=== PATIENT | male | born 1950 | race Caucasian/White ===

== ENCOUNTER 2020-09-06 10:13 | Day surgery (SDC) | payer MEDICARE ==
[~2020-09-06] VITALS: Ht 188 cm; Wt 82.7 kg
[2020-09-06] MEDS ORDERED: DOBUTAMINE/D5W PMX 250 ML ONE (11:27)
[2020-09-06 12:42] VITALS: BP 142/111
[2020-09-06 12:50] LABS: BASOPHILS % (AUTO) 1 % (0-1); EOSINOPHILS % (AUTO) 2 % (1-7); LYMPHOCYTES % (AUTO) 36 % (22-44); MEAN CORPUSCULAR HEMOGLOBIN 32.7 pg (27.5-34.5); MEAN CORPUSCULAR HGB CONC 34.5 g/dL (33.2-36.2); MEAN PLATELET VOLUME 7.9 fL (7.4-10.4); MONOCYTES % (AUTO) 9 % (2-9); NEUTROPHILS % (AUTO) 52 % (42-75); PLATELET COUNT 302 x10^3/uL (130-400); RED BLOOD COUNT 4.76 x10^6/uL (4.38-5.82); RED CELL DISTRIBUTION WIDTH 13.1 % (9.4-14.8)
[2020-09-06 12:52] LABS: MD NO
[2020-09-06 12:59] LABS: ANION GAP 5 mmol/L (5-15); CALCIUM 9.1 mg/dL (8.5-10.1); CHLORIDE 109 mmol/L (98-107); CREATININE 0.85 mg/dL (0.7-1.3)
[2020-09-06] MEDS ORDERED: MIDAZOLAM 1 MG/ML, 2ML ONE (13:32)
[2020-09-06] MEDS ORDERED: FENTANYL PF 100 MCG/2ML ONE (13:32)
[2020-09-06] MEDS ORDERED: VERAPAMIL 2.5 MG/ML, 2ML ONE (13:32)
[2020-09-06] MEDS ORDERED: HEPARIN 1,000 UNITS/ML, 10ML ONE (13:32)
[2020-09-06] MEDS ORDERED: LIDOCAINE-MPF 1%, 5ML ONE (13:32)
[2020-09-06] MEDS ORDERED: SODIUM CHLORIDE 0.9% 1,000 ML IV SCH (14:30)
== END 2020-09-06 15:44 | disposition home or self-care (01) ==
LOC: CACL 10:13 → EDSTATUS 11:00 → CACL 15:44
PROVIDERS: ATTEND Internal Medicine Clinical Cardiac Electrophysiology
DX: Q23.1 Congenital insufficiency of aortic valve (principal); I25.10 Atherosclerotic heart disease of native coronary artery without angina pectoris; I10 Essential (primary) hypertension; Z79.899 Other long term (current) drug therapy; Z87.891 Personal history of nicotine dependence; Z98.890 Other specified postprocedural states; Z82.49 Family history of ischemic heart disease and other diseases of the circulatory system
CPT/HCPCS: 36415; 80048; 85025; 93017; 93321; 93350; 93458; 99156; C1769; C1894; J1250; J1644; J2250; J3010; Q9967

== ENCOUNTER 2020-10-03 11:44 | Day surgery (SDC) | payer MEDICARE ==
[~2020-10-03] VITALS: Ht 182.9 cm; Wt 82.7 kg
[2020-10-03] MEDS ORDERED: SODIUM CHLORIDE 0.9% 1,000 ML IV SCH (13:00)
[2020-10-03] MEDS ORDERED: LIDOCAINE 2%, 20ML ONE (13:13)
[2020-10-03] MEDS ORDERED: ADENOSINE 6 MG/2 ML ONE (13:13)
[2020-10-03] MEDS ORDERED: ISOPROTERENOL 0.2MG/ML, 5ML ONE (13:13)
[2020-10-03] MEDS ORDERED: MIDAZOLAM 1 MG/ML, 5ML ONE (13:13)
[2020-10-03] MEDS ORDERED: FENTANYL PF 100 MCG/2ML ONE (13:13)
[2020-10-03 13:36] VITALS: BP 135/79
[2020-10-03 13:41] LABS: BASOPHILS % (AUTO) 1 % (0-1); EOSINOPHILS % (AUTO) 1 % (1-7); LYMPHOCYTES % (AUTO) 26 % (22-44); MEAN CORPUSCULAR HEMOGLOBIN 32.8 pg (27.5-34.5); MEAN CORPUSCULAR HGB CONC 34.6 g/dL (33.2-36.2); MEAN PLATELET VOLUME 8.1 fL (7.4-10.4); MONOCYTES % (AUTO) 7 % (2-9); NEUTROPHILS % (AUTO) 66 % (42-75); PLATELET COUNT 316 x10^3/uL (130-400); RED BLOOD COUNT 4.81 x10^6/uL (4.38-5.82); RED CELL DISTRIBUTION WIDTH 13.2 % (9.4-14.8)
[2020-10-03 13:44] LABS: MD NO
[2020-10-03 13:47] LABS: ANION GAP 7 mmol/L (5-15); CALCIUM 9.2 mg/dL (8.5-10.1); CHLORIDE 107 mmol/L (98-107); INTERNATIONAL NORMALIZED RATIO 1.02 (0.93-1.1); PROTHROMBIN TIME 10.9 Seconds (9.6-11.5)
[2020-10-03] MEDS ORDERED: LIDOCAINE 1%, 20ML ONE (15:11)
== END 2020-10-03 19:41 | disposition home or self-care (01) ==
LOC: CACL 11:44 → 5SO 15:40 → CACL 19:41
PROVIDERS: ATTEND Internal Medicine Clinical Cardiac Electrophysiology
DX: R55 Syncope and collapse (principal); I47.2 Ventricular tachycardia; Q23.1 Congenital insufficiency of aortic valve; I25.10 Atherosclerotic heart disease of native coronary artery without angina pectoris; I10 Essential (primary) hypertension; Z79.899 Other long term (current) drug therapy; Z98.890 Other specified postprocedural states; Z87.891 Personal history of nicotine dependence; Z82.49 Family history of ischemic heart disease and other diseases of the circulatory system
CPT/HCPCS: 33285; 36415; 71046; 80048; 85025; 85610; 93005; 93620; 99156; 99157; C1730; C1764; C1769; C1894; J2250; J3010; 76937; G0378; J0153